=== PATIENT | female | born 1940 | race Asian ===

== ENCOUNTER 2018-05-25 19:21 | Inpatient (IN) | payer OTHER ==
[~2018-05-25] VITALS: Ht 157.5 cm; Wt 71.6 kg
[~2018-05-25 19:21] MED LIST: EZET1TAB30 PO; OLME40TA12 PO; probiotic
[2018-05-25 19:56] LABS: BASOPHILS # (AUTO) 0.02 x10^3/uL (0-0.1); BASOPHILS % (AUTO) 0 % (0-1); EOSINOPHILS # (AUTO) 0.05 x10^3/uL (0-0.4); EOSINOPHILS % (AUTO) 1 % (1-7); LYMPHOCYTES # (AUTO) 1.33 x10^3/uL (1-3.4); LYMPHOCYTES % (AUTO) 12 % (22-44); MD NO; MEAN CORPUSCULAR HEMOGLOBIN 29.7 pg (27.0-34.8); MEAN CORPUSCULAR HGB CONC 33.4 g/dL (32.4-35.8); MEAN PLATELET VOLUME 7.3 fL (7.4-10.4); MONOCYTES # (AUTO) 1.15 x10^3/uL (0.2-0.8); MONOCYTES % (AUTO) 10 % (2-9); NEUTROPHILS # (AUTO) 8.44 x10^3/uL (1.8-6.8); NEUTROPHILS % (AUTO) 77 % (42-75); PLATELET COUNT 203 x10^3/uL (130-400); RED BLOOD COUNT 4.55 x10^6/uL (3.82-5.3); RED CELL DISTRIBUTION WIDTH 14.7 % (9.6-15.2)
[2018-05-25 20:05] LABS: ALBUMIN 3.1 g/dL (3.4-5.0); ANION GAP 10 mmol/L (5-15); CALCIUM 7.9 mg/dL (8.5-10.1); CHLORIDE 107 mmol/L (98-107); CREATININE 1.29 mg/dL (0.55-1.02)
[2018-05-25 20:09] LABS: TROPONIN I 0.075 ng/mL (0.000-0.045)
[2018-05-25 20:29] LABS: CULTURE INDICATED? YES; MICROSCOPIC AUTO
[2018-05-25] MEDS ORDERED: CEFTRIAXONE 1,000 MG in SODIUM CHLORIDE 0.9% 50 ML IV ONE (21:00)
[2018-05-25] MEDS ORDERED: CHOL200024 PO (21:23)
[2018-05-25] MEDS ORDERED: MULT-717 PO (21:23)
[2018-05-25] MEDS ORDERED: METO25TA35 PO ×2 (21:23→21:25)
[2018-05-25] MEDS ORDERED: OMEP-110 PO (21:23)
[2018-05-25] MEDS ORDERED: LACT1CAP5 PO (21:23)
[2018-05-25] MEDS ORDERED: CYAN1TAB29 PO (21:23)
[2018-05-25] MEDS ORDERED: OMEG1CAP23 PO (21:23)
[2018-05-25] MEDS ORDERED: MAGN400T7 PO (21:25)
[2018-05-25] MEDS ORDERED: QUET50TA PO (21:25)
[2018-05-25] MEDS ORDERED: SENN-66 PO (21:25)
[2018-05-25] MEDS ORDERED: CEFTRIAXONE PMX 1GM/50ML 50 ML ONE (21:59)
[2018-05-25] MEDS ORDERED: POLYETHYLENE GLYCOL 17 GM PACKET PO PRN (22:00)
[2018-05-25] MEDS ORDERED: ONDANSETRON 2MG/ML, 2ML IVPush PRN (22:00)
[2018-05-25] MEDS ORDERED: BISACODYL 10 MG SUPP PR PRN (22:00)
[2018-05-25] MEDS ORDERED: LOSARTAN 50MG TABLET PO PRN (22:00)
[2018-05-25] MEDS: CEFTRIAXONE 1,000 MG in SODIUM CHLORIDE 0.9% 50 ML IV SCH (22:07)
[2018-05-25 22:38] VITALS: BP 146/87
[2018-05-25] MEDS ORDERED: TRAM50TA2 PO (22:45)
[2018-05-25] MEDS ORDERED: LEVO25TA2 PO (23:17)
[2018-05-25] MEDS: METOPROLOL TARTRATE 25 MG TABLET PO SCH (23:33)
[2018-05-25] MEDS: SODIUM CHLORIDE 0.9% 1,000 ML IV SCH (23:33)
[2018-05-25] MEDS: SENNA/DOCUSATE TABLET PO SCH (23:34)
[2018-05-25] MEDS: QUETIAPINE 25MG TABLET PO SCH (23:34)
[2018-05-25] MEDS: MAGNESIUM OXIDE 400 MG TABLET PO SCH (23:34)
[2018-05-25] MEDS: ACETAMINOPHEN 325 MG TABLET PO PRN (23:35)
[2018-05-26 01:36] VITALS: BP 97/61
[2018-05-26] MEDS ORDERED: MAGN1TAB PO (03:29)
[2018-05-26 05:19] LABS: BASOPHILS # (AUTO) 0.01 x10^3/uL (0-0.1); BASOPHILS % (AUTO) 0 % (0-1); EOSINOPHILS # (AUTO) 0.05 x10^3/uL (0-0.4); EOSINOPHILS % (AUTO) 1 % (1-7); LYMPHOCYTES % (AUTO) 17 % (22-44); MD NO; MEAN CORPUSCULAR HGB CONC 32.7 g/dL (32.4-35.8); MEAN CORPUSCULAR VOLUME 88.9 fL (80-100); MEAN PLATELET VOLUME 7.4 fL (7.4-10.4); MONOCYTES # (AUTO) 0.83 x10^3/uL (0.2-0.8); MONOCYTES % (AUTO) 10 % (2-9); NEUTROPHILS # (AUTO) 5.93 x10^3/uL (1.8-6.8); NEUTROPHILS % (AUTO) 72 % (42-75); PLATELET COUNT 185 x10^3/uL (130-400); RED CELL DISTRIBUTION WIDTH 15.2 % (9.6-15.2)
[2018-05-26 05:30] LABS: ALANINE AMINOTRANSFERASE 32 U/L (12-78); ALBUMIN 2.5 g/dL (3.4-5.0); ANION GAP 8 mmol/L (5-15); CALCIUM 7.6 mg/dL (8.5-10.1); CHLORIDE 111 mmol/L (98-107)
[2018-05-26 05:32] LABS: ALKALINE PHOSPHATASE 89 U/L (45-117); BILIRUBIN,TOTAL 0.3 mg/dL (0.2-1.0); TOTAL PROTEIN 6.6 g/dL (6.4-8.2)
[2018-05-26 07:00] VITALS: BP 116/76
[2018-05-26] MEDS: FOLIC ACID 1 MG TABLET PO SCH (08:13)
[2018-05-26] MEDS: CYANOCOBALOMIN 100MCG TABLET PO SCH (08:13)
[2018-05-26] MEDS: MULTIVITAMINS/MINERALS TABLET PO SCH (08:14)
[2018-05-26] MEDS: OMEGA-3/FISH OIL CAPSULE PO SCH (08:14)
[2018-05-26] MEDS: LACTOBACILLUS CHEW TABLET PO SCH (08:14)
[2018-05-26] MEDS: OMEPRAZOLE 20 MG CAPSULE.DR PO SCH (08:14)
[2018-05-26] MEDS: METOPROLOL TARTRATE 25 MG TABLET PO SCH ×2 (08:14→21:10)
[2018-05-26] MEDS: EZETIMIBE 10 MG TABLET PO SCH (08:20)
[2018-05-26 12:07] LABS: TROPONIN I 0.067 ng/mL (0.000-0.045)
[2018-05-26] MEDS: SIMVASTATIN 20 MG TABLET PO SCH ×2 (12:40→21:09)
[2018-05-26] MEDS: CHOLECALCIFEROL 1,000 UNIT TABLET PO SCH (12:40)
[2018-05-26] MEDS: SODIUM CHLORIDE 0.9% 1,000 ML IV SCH ×2 (12:40→23:59)
[2018-05-26 13:01] VITALS: BP 152/87
[2018-05-26] MEDS: ACETAMINOPHEN 325 MG TABLET PO PRN ×2 (13:08→21:09)
[2018-05-26 18:53] VITALS: BP 125/73
[2018-05-26] MEDS: MAGNESIUM OXIDE 400 MG TABLET PO SCH (21:00)
[2018-05-26] MEDS: CEFTRIAXONE 1,000 MG in SODIUM CHLORIDE 0.9% 50 ML IV SCH (21:09)
[2018-05-26] MEDS: SENNA/DOCUSATE TABLET PO SCH (21:10)
[2018-05-26] MEDS: QUETIAPINE 25MG TABLET PO SCH (21:10)
[2018-05-27 01:13] VITALS: BP 128/79
[2018-05-27 05:19] LABS: BASOPHILS # (AUTO) 0.02 x10^3/uL (0-0.1); BASOPHILS % (AUTO) 0 % (0-1); EOSINOPHILS # (AUTO) 0.09 x10^3/uL (0-0.4); EOSINOPHILS % (AUTO) 1 % (1-7); LYMPHOCYTES # (AUTO) 1.65 x10^3/uL (1-3.4); LYMPHOCYTES % (AUTO) 20 % (22-44); MD NO; MEAN CORPUSCULAR HGB CONC 32.7 g/dL (32.4-35.8); MEAN CORPUSCULAR VOLUME 88.8 fL (80-100); MEAN PLATELET VOLUME 7.1 fL (7.4-10.4); MONOCYTES # (AUTO) 0.79 x10^3/uL (0.2-0.8); MONOCYTES % (AUTO) 9 % (2-9); NEUTROPHILS # (AUTO) 5.89 x10^3/uL (1.8-6.8); NEUTROPHILS % (AUTO) 70 % (42-75); PLATELET COUNT 202 x10^3/uL (130-400); RED BLOOD COUNT 4.09 x10^6/uL (3.82-5.3); RED CELL DISTRIBUTION WIDTH 15.6 % (9.6-15.2)
[2018-05-27 05:30] LABS: ANION GAP 9 mmol/L (5-15); CHLORIDE 113 mmol/L (98-107); CREATININE 1.21 mg/dL (0.55-1.02)
[2018-05-27] MEDS ORDERED: LEVOTHYROXINE 25 MCG TABLET PO SCH (06:00)
[2018-05-27 07:40] VITALS: BP 156/88
[2018-05-27] MEDS: FOLIC ACID 1 MG TABLET PO SCH (09:49)
[2018-05-27] MEDS: EZETIMIBE 10 MG TABLET PO SCH (09:49)
[2018-05-27] MEDS: OMEGA-3/FISH OIL CAPSULE PO SCH (09:49)
[2018-05-27] MEDS: OMEPRAZOLE 20 MG CAPSULE.DR PO SCH (09:49)
[2018-05-27] MEDS: CYANOCOBALOMIN 100MCG TABLET PO SCH (09:49)
[2018-05-27] MEDS: MULTIVITAMINS/MINERALS TABLET PO SCH (09:49)
[2018-05-27] MEDS: LACTOBACILLUS CHEW TABLET PO SCH (09:50)
[2018-05-27] MEDS: CHOLECALCIFEROL 1,000 UNIT TABLET PO SCH (09:50)
[2018-05-27] MEDS: METOPROLOL TARTRATE 25 MG TABLET PO SCH (09:50)
[2018-05-27] MEDS ORDERED: CEFD300C37 PO (11:36)
[2018-05-27] MEDS: ACETAMINOPHEN 325 MG TABLET PO PRN (12:26)
[2018-05-27] MEDS: SODIUM CHLORIDE 0.9% 1,000 ML IV SCH (13:33)
== END 2018-05-27 14:14 | disposition home or self-care (01) | DRG 690 ==
LOC: ED 20:57 → EDIP 21:03 → 3NE 22:36
PROVIDERS: ADMIT Internal Medicine; ATTEND Internal Medicine
DX: N39.0 Urinary tract infection, site not specified (principal); E44.1 Mild protein-calorie malnutrition; I25.10 Atherosclerotic heart disease of native coronary artery without angina pectoris; I10 Essential (primary) hypertension; E78.5 Hyperlipidemia, unspecified
CPT/HCPCS: 36415; 80048; 80053; 81001; 82040; 82962; 84443; 84484; 85025; 87040; 87077; 87086; 87186; 93005; 93306; 96374; J0696; J7030

== ENCOUNTER 2021-04-12 11:53 | Emergency (ER) | payer OTHER ==
[~2021-04-12] VITALS: Ht 160 cm; Wt 75.3 kg
[~2021-04-12 11:53] MED LIST changes: +CEFD300C37 PO; +CHOL200024 PO; +CYAN1TAB29 PO; +LACT1CAP5 PO; +LEVO25TA2 PO; +MAGN1TAB PO; +MAGN400T9 PO; +METO25TA35 PO; +MULT-717 PO; +OMEG1CAP23 PO; +OMEP-110 PO; +QUET50TA PO; +SENN1TAB59 PO; +TRAM50TA2 PO
[2021-04-12 12:01] VITALS: BP 111/75
--- NOTE | 2021-04-12 12:23 | NUR ---
PT AMBULATED TO RESTROOM WITH STEADY GAIT AND OWN CANE.
[2021-04-12 12:33] LABS: BASOPHILS % (AUTO) 1 % (0-1); EOSINOPHILS % (AUTO) 1 % (1-7); LYMPHOCYTES % (AUTO) 14 % (22-44); MEAN CORPUSCULAR HEMOGLOBIN 25.6 pg (27.0-34.8); MEAN CORPUSCULAR HGB CONC 32.5 g/dL (32.4-35.8); MEAN PLATELET VOLUME 7.1 fL (7.4-10.4); MONOCYTES % (AUTO) 9 % (2-9); NEUTROPHILS % (AUTO) 77 % (42-75); PLATELET COUNT 207 x10^3/uL (130-400); RED CELL DISTRIBUTION WIDTH 20.1 % (9.6-15.2)
[2021-04-12 12:43] LABS: ALBUMIN 3.8 g/dL (3.4-5.0); ANION GAP 4 mmol/L (5-15); CALCIUM 8.6 mg/dL (8.5-10.1); CHLORIDE 104 mmol/L (98-107); CREATININE 1.48 mg/dL (0.55-1.02)
[2021-04-12] MEDS ORDERED: ACETAMINOPHEN 325 MG TABLET ONE (12:43)
--- NOTE | 2021-04-12 12:44 | NUR ---
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
--- NOTE | 2021-04-12 12:46 | NUR ---
US AT BEDSIDE
[2021-04-12] MEDS ORDERED: ACETAMINOPHEN 325 MG TABLET PO ONE (13:00)
--- NOTE | 2021-04-12 13:14 | NUR ---
ALL RESULTS ARE BACK AT THIS TIME. CHART UP FOR RECHECK.
[2021-04-12] MEDS ORDERED: COLCHICINE 0.6 MG CAPSULE ONE (13:27)
[2021-04-12] MEDS ORDERED: COLCHICINE 0.6 MG CAPSULE PO ONE (13:30)
== END 2021-04-12 13:46 | disposition home or self-care (01) ==
LOC: ED 13:30
DX: M10.072 Idiopathic gout, left ankle and foot (principal); E78.5 Hyperlipidemia, unspecified; I25.2 Old myocardial infarction; I10 Essential (primary) hypertension
CPT/HCPCS: 36415; 80048; 82040; 84550; 85025; 99285